=== PATIENT | female | born 1965 | race Two or more races ===

== ENCOUNTER 2019-02-23 19:55 | Inpatient (IN) | payer BC ==
[~2019-02-23] VITALS: Ht 157.5 cm; Wt 96.1 kg
[2019-02-23] MEDS ORDERED: LORazepam 0.5 MG TAB PO ONE (20:15)
[2019-02-23] MEDS ORDERED: ASPirin 81 mg TAB PO ONE (20:15)
[2019-02-23 21:44] LABS: Basophils # (auto) 0.1 uL; Basophils % (auto) 0.5 % (0.0-2.0); Eosinophils # (auto) 0.2 uL; Eosinophils % (auto) 1.5 % (0.0-7.0); Hematocrit 44.6 % (36.0-46.0); Hemoglobin 14.5 g/dL (12.2-16.2); Lymphocytes # (auto) 2.3 uL; Lymphocytes % (auto) 19.2 % (10.0-50.0); Mean Corpuscular Hemoglobin 27.1 pg (28.0-32.0); Mean Corpuscular Hgb Conc. 32.4 g/dL (32.0-36.0); Mean Corpuscular Volume 83.5 fL (80.0-100.0); Monocytes # (auto) 0.4 uL; Monocytes % (auto) 3.5 % (0.0-12.0); Neutrophils # (auto) 9.1 uL; Neutrophils % (auto) 75.3 % (37.0-80.0); Nucleated Red Blood Cells % 0.1 %; Platelet Count (auto) 308 10^3/uL (140-450); Red Blood Cells 5.34 10^6/uL (4.0-5.20); Red Cell Distribution Width 14.7 % (11.8-14.3); White Blood Cell 12.1 10^3/uL (4.4-10.8)
[2019-02-23 22:01] LABS: INR < 0.93 (0.9-1.15); Partial Thromboplastin Time 27.7 sec (23.64-32.05)
[2019-02-23 22:02] LABS: Albumin 3.6 g/dL (3.4-5.0); Anion Gap 5 (5-15); Blood Urea Nitrogen 10 mg/dL (7-18); Carbon Dioxide 30 mmol/L (21-32); Chloride 104 mmol/L (98-107); Glucose 76 mg/dL (74-106); Potassium 3.8 mmol/L (3.5-5.1); Sodium 139 mmol/L (136-145)
[2019-02-23 22:08] LABS: Alanine Aminotransferase 16 U/L (13-56); Alkaline Phosphatase 88 U/L (45-117); Aspartate Aminotransferase 13 U/L (15-37); BUN/Creatinine Ratio 10.9; Bilirubin, Total 0.4 mg/dL (0.2-1.0); GFR African American 82 mL/min; GFR Non-African American 68 mL/min; Total Protein 8.6 g/dL (6.4-8.2)
[2019-02-24] VITALS (8 sets, daily range): BP systolic 95–131; BP diastolic 55–75
[2019-02-24] MEDS ORDERED: ONDANSETRON HCL 4 MG/2 ML VIAL IV PRN (00:15)
[2019-02-24] MEDS ORDERED: MORPHINE SULF INJ 2 MG/ML SYRINGE 1ML IV PRN (00:15)
[2019-02-24] MEDS ORDERED: ACETAMINOPHEN 500 MG TAB PO PRN (00:15)
[2019-02-24] MEDS ORDERED: TEMAZEPAM 15 MG CAP PO PRN (00:15)
[2019-02-24] MEDS ORDERED: NITROGLYCERIN 0.4 MG SL TAB SL PRN (00:15)
[2019-02-24 00:43] LABS: Urine Bacteria MANY /hpf (None Seen); Urine Blood Negative /uL (Negative); Urine Mucus FEW (None Seen); Urine Specific Gravity 1.009 (1.001-1.035); Urine WBC <1 /hpf (0 - 5)
--- NOTE | 2019-02-24 02:06 | NUR ---
Telemetry admit from ER YOSELYN ELDRIDGE admitted to Telemetry unit. Patient oriented to ORLANDO VALLADARES RN primary RN, unit, room, bed, and unit policies regarding patient care and visiting hours. Patient now on continuous telemetry monitoring, tele box #[id number]. encouraged to call if they need something. All questions and concerns addressed, patient verbalized understanding. Bed in low position and call light within reach.
[2019-02-24 07:00] LABS: Basophils # (auto) 0 uL; Basophils % (auto) 0.5 % (0.0-2.0); Eosinophils # (auto) 0.2 uL; Eosinophils % (auto) 2.4 % (0.0-7.0); Hematocrit 36.6 % (36.0-46.0); Hemoglobin 12.3 g/dL (12.2-16.2); Lymphocytes # (auto) 2.2 uL; Lymphocytes % (auto) 25.8 % (10.0-50.0); Mean Corpuscular Hemoglobin 27.7 pg (28.0-32.0); Mean Corpuscular Hgb Conc. 33.7 g/dL (32.0-36.0); Mean Corpuscular Volume 82.3 fL (80.0-100.0); Monocytes # (auto) 0.4 uL; Monocytes % (auto) 4.2 % (0.0-12.0); Neutrophils # (auto) 5.7 uL; Neutrophils % (auto) 67.1 % (37.0-80.0); Platelet Count (auto) 247 10^3/uL (140-450); Red Blood Cells 4.45 10^6/uL (4.0-5.20); Red Cell Distribution Width 14.6 % (11.8-14.3); White Blood Cell 8.5 10^3/uL (4.4-10.8)
[2019-02-24 07:04] LABS: Anion Gap 5 (5-15); Blood Urea Nitrogen 11 mg/dL (7-18); Calcium 8.3 mg/dL (8.5-10.1); Carbon Dioxide 28 mmol/L (21-32); Chloride 108 mmol/L (98-107); Glucose 90 mg/dL (74-106); Potassium 3.6 mmol/L (3.5-5.1); Sodium 141 mmol/L (136-145)
[2019-02-24 07:11] LABS: BUN/Creatinine Ratio 14.7; Cholesterol 136 mg/dL (< 200); GFR African American 104 mL/min; GFR Non-African American 86 mL/min; HDL Cholesterol 40 mg/dL (40-59); LDL Cholesterol 90 mg/dL (< 100); Triglycerides 74 mg/dL (< 150)
--- NOTE | 2019-02-24 07:20 | NUR ---
report given to milagros whyte
--- NOTE | 2019-02-24 08:15 | NUR ---
Shift Opening Notes Assumed care of patient. Alert and oriented x4, no signs or symptoms of distress noted. Patient informed on plan of care and verbalized understanding. Bed in lowest position, bed rails up x2, call light in reach. Will continue to monitor.
[2019-02-24] MEDS: METOPROLOL TARTRATE 25 MG TAB PO SCH ×2 (10:00→21:18)
[2019-02-24] MEDS: ASPirin-EC 81 mg tab PO SCH (10:00)
[2019-02-24] MEDS: DOCUSATE SOD 100 MG CAP PO SCH ×2 (10:00→21:17)
--- NOTE | 2019-02-24 10:00 | NUR ---
Stress Test Patient taken for stress test. no signs or symptoms of distress noted
[2019-02-24] MEDS ORDERED: ADENOSINE 81 MG in GIVE UN-DILUTED 0 ML IV STA (10:57)
[2019-02-24] MEDS ORDERED: ALPRAZolam 0.5 MG TAB PO PRN (11:30)
--- NOTE | 2019-02-24 12:00 | NUR ---
patient at stress test Addendum: 02/24/19 at 1319 by ATUL CORTEZ RN RN Amended: Links added.
--- NOTE | 2019-02-24 12:47 | NUR ---
patient returned from stress test Patient returned from stress test. No signs or symptoms of stress noted. Patient updated on the plan of care and patient verbalized understanding. Bed in the lowest position, bed rails up x2, call light in reach, will continue to monitor.
--- NOTE | 2019-02-24 13:17 | NUR ---
patient was at stress test Addendum: 02/24/19 at 1319 by ATUL CORTEZ RN RN Amended: Links added.
--- NOTE | 2019-02-24 14:15 | NUR ---
US at bedside
--- NOTE | 2019-02-24 18:32 | NUR ---
PATIENT ROUNDS PATIENT RESTING IN BED, NO S/S OF DISTRESS OR SOB, NO PAIN NOTED OR REPORTED. DINNER TRAY PROVIDED. WILL ENDORSE CARE TO EVENT DESIGNER RN.
--- NOTE | 2019-02-24 19:20 | NUR ---
Opening Shift Note Assumed care of patient, awake and alert. No S/S of distress/SOB or pain. Instructed on POC and to call for assist PRN, will continue to monitor for changes Q1hr and PRN.
[2019-02-24] MEDS ORDERED: ATORVASTATIN 20 MG TAB PO SCH (22:00)
--- NOTE | 2019-02-25 01:00 | NUR ---
Respiratory note: PT TAKEN OFF CPAP AT THIS TIME DUE TO PT REQUEST. PT STATED THAT SHE DID NOT LIKE HOW IT FELT ON HER AND THAT SHE FELT CLAUSTROPHOBIC WITH IT ON. I ASKED IF SHE WANTED TO TRY A SMALLER NASAL MASK, BUT SHE SAID NO. CPAP LEFT IN THE ROOM AT THIS TIME, PT AWARE TO CALL FOR RT IF SHE WISHES TO TRY AGAIN AT A LATER TIME.
[2019-02-25 02:49] VITALS: BP 110/58
[2019-02-25 05:00] VITALS: BP 133/62
--- NOTE | 2019-02-25 07:19 | NUR ---
Report given to milagros whyte
--- NOTE | 2019-02-25 07:25 | NUR ---
Shift Opening Notes Assumed care of patient. Alert and oriented x4, no signs or symptoms of distress or SOB, no pain noted or reported at this time. Patient informed on plan of care and instructed to call for assistance as needed, patient verbalized understanding. Respirations are even and unlabored on RA. Bed locked in lowest position, bed rails up x2, call light in reach. Will continue to monitor q1hr and PRN.
[2019-02-25 09:00] VITALS: BP 87/60
[2019-02-25] MEDS: METOPROLOL TARTRATE 25 MG TAB PO SCH (10:00)
[2019-02-25] MEDS: ASPirin-EC 81 mg tab PO SCH (10:11)
[2019-02-25] MEDS: DOCUSATE SOD 100 MG CAP PO SCH (10:11)
[2019-02-25 11:32] VITALS: BP 90/50
--- NOTE | 2019-02-25 13:26 | NUR ---
Spoke with Zeina Gonzalez Patient is to see Dr. Elam as primary care provider on March 19 at 3pm. Discharge orders were updated to reflect after care follow up information.
--- NOTE | 2019-02-25 14:30 | NUR ---
Discharge instructions given as ordered. Encourage to follow up with PCP, service parts driver, and neurologist as instructed. All questions and concerns addressed. Patient verbalized understanding. Medication reconciliation form completed and copy given to patient. IV removed with catheter intact, pressure dressing applied. Telemetry unit returned to ICU. Patient taken to vehicle via wheelchair with all personal belongings, accompanied by staff and family member. No distress noted at time of departure.
== END 2019-02-25 14:30 | disposition home or self-care (01) | DRG 303 ==
LOC: ER 19:59 → TELE 20:00 → TELE-CENTR 02-24 02:06
PROVIDERS: ADMIT Nurse Practitioner Family; ATTEND Family Medicine
DX: I25.10 Atherosclerotic heart disease of native coronary artery without angina pectoris (principal); E66.9 Obesity, unspecified; I10 Essential (primary) hypertension; J32.0 Chronic maxillary sinusitis; Z82.3 Family history of stroke; Z82.49 Family history of ischemic heart disease and other diseases of the circulatory system; Z83.3 Family history of diabetes mellitus; Z87.01 Personal history of pneumonia (recurrent); Z79.899 Other long term (current) drug therapy; Z68.38 Body mass index [BMI] 38.0-38.9, adult
CPT/HCPCS: 36415; 70450; 71045; 78452; 80048; 80053; 80061; 81001; 83880; 84484; 85025; 85610; 85730; 93005; 93017; 93306; 94660; G0378; J0153

== ENCOUNTER 2019-03-11 22:27 | Emergency (ER) | payer BC ==
[~2019-03-11] VITALS: Ht 157.5 cm; Wt 96.2 kg
[2019-03-11 23:11] LABS: Basophils # (auto) 0.1 uL; Basophils % (auto) 0.4 % (0.0-2.0); Eosinophils # (auto) 0.1 uL; Hematocrit 41.2 % (36.0-46.0); Hemoglobin 13.8 g/dL (12.2-16.2); Lymphocytes # (auto) 1.7 uL; Lymphocytes % (auto) 14.2 % (10.0-50.0); Mean Corpuscular Hemoglobin 27.4 pg (28.0-32.0); Mean Corpuscular Hgb Conc. 33.5 g/dL (32.0-36.0); Mean Corpuscular Volume 81.9 fL (80.0-100.0); Monocytes # (auto) 0.6 uL; Monocytes % (auto) 5.2 % (0.0-12.0); Neutrophils # (auto) 9.3 uL; Neutrophils % (auto) 79.2 % (37.0-80.0); Platelet Count (auto) 283 10^3/uL (140-450); Red Blood Cells 5.03 10^6/uL (4.0-5.20); Red Cell Distribution Width 14.8 % (11.8-14.3); White Blood Cell 11.7 10^3/uL (4.4-10.8)
[2019-03-11 23:26] LABS: INR 0.94 (0.9-1.15); Partial Thromboplastin Time 25.4 sec (23.64-32.05)
[2019-03-11 23:31] LABS: Albumin 3.4 g/dL (3.4-5.0); Anion Gap 5 (5-15); BUN/Creatinine Ratio 4.8; Blood Urea Nitrogen 4 mg/dL (7-18); Calcium 8.9 mg/dL (8.5-10.1); Carbon Dioxide 31 mmol/L (21-32); Chloride 105 mmol/L (98-107); GFR African American 93 mL/min; GFR Non-African American 77 mL/min; Glucose 145 mg/dL (74-106); Magnesium 2.2 mg/dL (1.6-2.6); Potassium 3.9 mmol/L (3.5-5.1); Sodium 141 mmol/L (136-145)
[2019-03-11 23:41] LABS: Alanine Aminotransferase 49 U/L (13-56); Alkaline Phosphatase 79 U/L (45-117); Aspartate Aminotransferase 39 U/L (15-37); Bilirubin, Total 0.5 mg/dL (0.2-1.0); Total Protein 7.6 g/dL (6.4-8.2)
[2019-03-11 23:58] LABS: Urine Bacteria FEW /hpf (None Seen); Urine Blood Negative /uL (Negative); Urine Mucus FEW (None Seen); Urine Specific Gravity 1.006 (1.001-1.035); Urine WBC <1 /hpf (0 - 5)
[2019-03-12] MEDS ORDERED: ONDANSETRON HCL 4 MG/2 ML VIAL IV ONE (03:00)
[2019-03-12] MEDS ORDERED: MORPHINE SULFATE 4 MG/ML SYR/VIAL IV ONE (03:00)
[2019-03-12 04:31] VITALS: BP 104/59
== END 2019-03-12 05:27 | disposition home or self-care (01) ==
LOC: ER 22:28
DX: R07.89 Other chest pain (principal); I10 Essential (primary) hypertension
CPT/HCPCS: 36415; 71046; 80053; 81001; 83735; 83880; 84484; 85025; 85610; 85730; 93005; 96374; 96375; 99284; J2270; J2405

== ENCOUNTER 2019-03-23 08:10 | Day surgery (SDC) | payer BC ==
[~2019-03-23] VITALS: Ht 157.5 cm; Wt 94.8 kg
[~2019-03-23 08:10] MED LIST: ASPI-404 PO
[2019-03-23] MEDS ORDERED: LIDOCAINE 2%HCL (LOCAL ANESTH.) INJ 20ML MDV ONE (10:32)
[2019-03-23] MEDS ORDERED: IODIXANOL 320MG/ML 100ML BTL IV ONE (10:32)
[2019-03-23] MEDS ORDERED: VERAPAMIL 2.5MG/ML INJ 2ML VIAL IV ONE (10:44)
[2019-03-23] MEDS ORDERED: ANGIOMAX 250 MG VIAL IV ONE (10:44)
[2019-03-23] MEDS ORDERED: MIDAZOLAM HCL 1MG/1ML-2 ML VIAL ONE (10:44)
[2019-03-23] MEDS ORDERED: fentaNYL CITRATE 100 MCG/2 ML VL ONE (10:44)
[2019-03-23] MEDS ORDERED: SODIUM CHL 0.9% 0 ML ONE (10:44)
== END 2019-03-23 13:44 | disposition home or self-care (01) ==
LOC: CATH 08:10
PROVIDERS: ATTEND Internal Medicine
DX: R94.39 Abnormal result of other cardiovascular function study (principal); R07.89 Other chest pain; E78.5 Hyperlipidemia, unspecified; Z79.82 Long term (current) use of aspirin; Z79.899 Other long term (current) drug therapy; Z87.891 Personal history of nicotine dependence; Z91.018 Allergy to other foods
CPT/HCPCS: 93005; 93458; C1760; C1769; C1894; J1644; J2250; J3010; Q9967; 99152; 99153

== ENCOUNTER 2022-08-07 17:01 | Emergency (ER) | payer BC ==
[~2022-08-07] VITALS: Ht 157.5 cm; Wt 108.2 kg
[~2022-08-07 17:01] MED LIST changes: -ASPI-404 PO; +ASPI-543 PO
[2022-08-07 18:03] LABS: Basophils # (auto) 0 10 ^3/uL (0-0.2); Basophils % (auto) 0.4 % (0.0-2.0); Eosinophils # (auto) 0.1 10 ^3/uL (0-0.8); Eosinophils % (auto) 0.9 % (0.0-7.0); Hematocrit 40.9 % (36.0-46.0); Hemoglobin 13.5 g/dL (12.2-16.2); Lymphocytes # (auto) 1.6 10 ^3/uL (0.4-5.4); Lymphocytes % (auto) 13.7 % (10.0-50.0); Mean Corpuscular Hemoglobin 27.4 pg (28.0-32.0); Mean Corpuscular Hgb Conc. 32.9 g/dL (32.0-36.0); Mean Corpuscular Volume 83.3 fL (80.0-100.0); Monocytes # (auto) 0.5 10 ^3/uL (0-1.3); Monocytes % (auto) 4.4 % (0.0-12.0); Neutrophils # (auto) 9.7 10 ^3/uL (1.6-8.6); Neutrophils % (auto) 80.6 % (37.0-80.0); Nucleated Red Blood Cells % 1.2 %; Red Cell Distribution Width 13.7 % (11.8-14.3)
[2022-08-07 18:11] LABS: Albumin 3.2 g/dL (3.4-5.0); BUN/Creatinine Ratio 14.7 (10.0-20.0); Calcium 8.9 mg/dL (8.5-10.1); Potassium 3.7 mmol/L (3.5-5.1)
[2022-08-07 18:14] LABS: Bilirubin, Total 0.4 mg/dL (0.2-1.0); Total Protein 7.6 g/dL (6.4-8.2)
[2022-08-07 18:18] LABS: Urine Bacteria NONE SEEN /hpf (None Seen); Urine Blood 3+ /uL (Negative); Urine Mucus FEW (None Seen); Urine Specific Gravity 1.024 (1.001-1.035); Urine WBC 295 /hpf (0 - 5)
[2022-08-07] MEDS ORDERED: cefTRIAXone SOD 1,000 MG VL IM ONE (20:30)
[2022-08-07] MEDS ORDERED: NITR-87 PO (23:17)
[2022-08-07 23:27] VITALS: BP 121/48
== END 2022-08-07 23:29 | disposition home or self-care (01) ==
LOC: ER 17:01
DX: N39.0 Urinary tract infection, site not specified (principal); Z88.6 Allergy status to analgesic agent; Z91.018 Allergy to other foods
CPT/HCPCS: 36415; 74176; 80053; 81001; 85025; 96372; 99285; J0696

== ENCOUNTER 2022-09-20 06:16 | Emergency (ER) | payer BC ==
[~2022-09-20] VITALS: Ht 157.5 cm; Wt 81.8 kg
[~2022-09-20 06:16] MED LIST changes: +NITR-87 PO
[2022-09-20 06:40] LABS: Basophils # (auto) 0.1 10 ^3/uL (0-0.2); Basophils % (auto) 0.7 % (0.0-2.0); Eosinophils # (auto) 0.1 10 ^3/uL (0-0.8); Eosinophils % (auto) 0.5 % (0.0-7.0); Hematocrit 42.1 % (36.0-46.0); Hemoglobin 14.5 g/dL (12.2-16.2); Lymphocytes # (auto) 2.2 10 ^3/uL (0.4-5.4); Lymphocytes % (auto) 18.1 % (10.0-50.0); Mean Corpuscular Hemoglobin 28.6 pg (28.0-32.0); Mean Corpuscular Hgb Conc. 34.4 g/dL (32.0-36.0); Mean Corpuscular Volume 83.1 fL (80.0-100.0); Monocytes # (auto) 0.5 10 ^3/uL (0-1.3); Monocytes % (auto) 4.3 % (0.0-12.0); Neutrophils # (auto) 9.3 10 ^3/uL (1.6-8.6); Neutrophils % (auto) 76.4 % (37.0-80.0); Nucleated Red Blood Cells % 0.1 %; Red Blood Cells 5.07 10^6/uL (4.0-5.20); Red Cell Distribution Width 13.6 % (11.8-14.3); White Blood Cell 12.2 10^3/uL (4.4-10.8)
[2022-09-20 06:49] LABS: INR 0.97 (0.9-1.15); Partial Thromboplastin Time 27.1 sec (24.6-33.4)
[2022-09-20 07:03] LABS: Albumin 3.8 g/dL (3.4-5.0); Calcium 9.5 mg/dL (8.5-10.1); Magnesium 2.2 mg/dL (1.6-2.6); Potassium 3.9 mmol/L (3.5-5.1)
[2022-09-20 07:07] LABS: Bilirubin, Total 0.7 mg/dL (0.2-1.0); Total Protein 7.2 g/dL (6.4-8.2)
[2022-09-20] MEDS ORDERED: traMADol HCL 50 MG TAB PO ONE (09:30)
[2022-09-20] MEDS ORDERED: TRAM50TA2 PO (10:06)
[2022-09-20 10:40] VITALS: BP 117/71
== END 2022-09-20 10:46 | disposition home or self-care (01) ==
LOC: ER 06:16
DX: R07.89 Other chest pain (principal); E78.5 Hyperlipidemia, unspecified; I25.2 Old myocardial infarction; Z98.61 Coronary angioplasty status
CPT/HCPCS: 36415; 71045; 80053; 83735; 83880; 84484; 85025; 85379; 85610; 85730; 93005

== ENCOUNTER 2023-07-16 13:51 | Inpatient (IN) | payer BC ==
[~2023-07-16] VITALS: Ht 157.5 cm; Wt 90.7 kg
[~2023-07-16 13:51] MED LIST changes: +TRAM50TA2 PO
[2023-07-16 14:24] LABS: Basophils # (auto) 0 10 ^3/uL (0-0.2); Basophils % (auto) 0.4 % (0.0-2.0); Eosinophils # (auto) 0 10 ^3/uL (0-0.8); Eosinophils % (auto) 0.3 % (0.0-7.0); Hematocrit 44.1 % (36.0-46.0); Hemoglobin 14.8 g/dL (12.2-16.2); Lymphocytes # (auto) 1.2 10 ^3/uL (0.4-5.4); Lymphocytes % (auto) 8.9 % (10.0-50.0); Mean Corpuscular Hemoglobin 28.1 pg (28.0-32.0); Mean Corpuscular Hgb Conc. 33.5 g/dL (32.0-36.0); Mean Corpuscular Volume 83.9 fL (80.0-100.0); Monocytes # (auto) 0.9 10 ^3/uL (0-1.3); Monocytes % (auto) 6.5 % (0.0-12.0); Neutrophils # (auto) 11.3 10 ^3/uL (1.6-8.6); Neutrophils % (auto) 83.9 % (37.0-80.0); Red Blood Cells 5.26 10^6/uL (4.0-5.20); Red Cell Distribution Width 13.7 % (11.8-14.3); White Blood Cell 13.5 10^3/uL (4.4-10.8)
[2023-07-16 14:26] LABS: Alanine Aminotransferase 39 U/L (7-40); Albumin 4.6 g/dL (3.2-4.8); Alkaline Phosphatase 103 U/L (46-116); Anion Gap 2 (5-15); Aspartate Aminotransferase 45 U/L (13-40); BUN/Creatinine Ratio 15.5 (10.0-20.0); Bilirubin, Total 1.1 mg/dL (0.2-1.0); Blood Urea Nitrogen 9 mg/dL (9-23); Calcium 9.9 mg/dL (8.7-10.4); Carbon Dioxide 33 mmol/L (20-30); Chloride 104 mmol/L (98-107); Glucose 113 mg/dL (74-106); Potassium 4.2 mmol/L (3.5-5.1); Sodium 139 mmol/L (136-145); Total Protein 7.9 g/dL (5.7-8.2)
[2023-07-16] MEDS: ASPirin 325 MG TAB PO ONE (17:10)
[2023-07-16] MEDS: MECLIZINE HCL 25 MG TAB PO ONE (17:10)
[2023-07-16] MEDS ORDERED: metroNIDAZOLE 500MG/100ML 100 ML IV ONE (17:15)
[2023-07-16] MEDS ORDERED: MORPHINE SULFATE 4 MG/ML SYR/VIAL IV PRN (17:15)
[2023-07-16] MEDS ORDERED: ONDANSETRON HCL 4 MG/2 ML VIAL IV PRN (17:15)
[2023-07-16] MEDS ORDERED: NITROGLYCERIN 0.4 MG SL TAB SL PRN (17:15)
[2023-07-16 17:51] LABS: Prothrombin Time 10.5 sec (9.3-11.8)
[2023-07-16] MEDS: SODIUM CHLORIDE 0.9% 1,000 ML IV ONE (18:22)
[2023-07-16] MEDS: METOPROLOL TARTRATE 25 MG TAB PO SCH (23:55)
[2023-07-16] MEDS: ATORVASTATIN 20 MG TAB PO SCH (23:55)
[2023-07-17] VITALS (8 sets, daily range): BP systolic 113–128; BP diastolic 37–68; PULSE 74–88; RESP 16–19; TEMP 97.6–98.7; O2SAT 95–99
[2023-07-17] MEDS: metroNIDAZOLE 500MG/100ML 100 ML IV SCH (01:50)
[2023-07-17] MEDS: SODIUM CHLORIDE 0.9% 1,000 ML IV SCH (05:24)
[2023-07-17 06:45] LABS: Basophils # (auto) 0.1 10 ^3/uL (0-0.2); Eosinophils # (auto) 0.2 10 ^3/uL (0-0.8); Eosinophils % (auto) 1.4 % (0.0-7.0); Hematocrit 35.7 % (36.0-46.0); Hemoglobin 11.9 g/dL (12.2-16.2); Lymphocytes # (auto) 2.3 10 ^3/uL (0.4-5.4); Lymphocytes % (auto) 19.7 % (10.0-50.0); Mean Corpuscular Hemoglobin 27.9 pg (28.0-32.0); Mean Corpuscular Hgb Conc. 33.4 g/dL (32.0-36.0); Mean Corpuscular Volume 83.4 fL (80.0-100.0); Monocytes # (auto) 0.9 10 ^3/uL (0-1.3); Monocytes % (auto) 7.6 % (0.0-12.0); Neutrophils % (auto) 70.3 % (37.0-80.0); Nucleated Red Blood Cells % 0.1 %; Red Blood Cells 4.29 10^6/uL (4.0-5.20); Red Cell Distribution Width 13.4 % (11.8-14.3); White Blood Cell 11.4 10^3/uL (4.4-10.8)
[2023-07-17 07:04] LABS: Alanine Aminotransferase 27 U/L (7-40); Albumin 3.6 g/dL (3.2-4.8); Alkaline Phosphatase 82 U/L (46-116); Anion Gap 4 (5-15); Aspartate Aminotransferase 23 U/L (13-40); Bilirubin, Total 1.1 mg/dL (0.2-1.0); Calcium 8.5 mg/dL (8.5-10.1); Carbon Dioxide 30 mmol/L (20-30); Chloride 108 mmol/L (98-107); Cholesterol 132 mg/dL (< 200); Glucose 107 mg/dL (74-106); HDL Cholesterol 30 mg/dL (40-59); LDL Cholesterol 83 mg/dL (< 100); Potassium 3.6 mmol/L (3.5-5.1); Sodium 142 mmol/L (136-145); Total Protein 5.8 g/dL (5.7-8.2); Triglycerides 145 mg/dL (< 150)
[2023-07-17 07:07] LABS: BUN/Creatinine Ratio 8.5 (10.0-20.0); Blood Urea Nitrogen < 5 mg/dL (9-23)
[2023-07-17] MEDS: cefTRIAXone 1GM/50ML D5W 50 ML IV SCH (08:14)
[2023-07-17] MEDS: ASPirin 81 mg TAB PO SCH (08:14)
[2023-07-17] MEDS: DOCUSATE SOD 100 MG CAP PO SCH (08:15)
[2023-07-17] MEDS ORDERED: ASPirin-EC 81 mg tab PO SCH (10:00)
[2023-07-17] MEDS: ERGOCALCIFEROL 50,000 UNIT(1.25MG) CAP PO SCH (21:47)
[2023-07-18 05:00] VITALS: BP 117/87; PULSE 72; RESP 17; TEMP 97.3; O2SAT 97
[2023-07-18 08:00] VITALS: BP 152/69; PULSE 67; PULSE 68; PULSE 70; RESP 18; TEMP 98; O2SAT 99
[2023-07-18] MEDS: ACETAMINOPHEN 325 MG TAB PO PRN (08:13)
[2023-07-18 12:00] VITALS: BP 135/75; PULSE 55; RESP 16; TEMP 97.8; O2SAT 98
[2023-07-18] MEDS: MORPHINE SULFATE INJ 2 MG/ml SYRG IV PRN (12:00)
[2023-07-18 16:00] VITALS: BP 158/66; PULSE 60; RESP 16; TEMP 97.7; O2SAT 100
[2023-07-18 20:00] VITALS: PULSE 67; PULSE 68; RESP 20; O2SAT 96
[2023-07-18 22:00] VITALS: BP 138/53; PULSE 68; RESP 20; TEMP 98.4; O2SAT 96
[2023-07-19] MEDS: cefTRIAXone 1GM/50ML D5W 50 ML IV ONE
[2023-07-19 05:00] VITALS: BP 151/52; PULSE 63; RESP 18; TEMP 98; O2SAT 98
[2023-07-19 08:00] VITALS: BP 159/71; PULSE 64; PULSE 70; RESP 16; TEMP 97.9; O2SAT 97
[2023-07-19] MEDS ORDERED: ZOFR4T PO (09:14)
[2023-07-19] MEDS ORDERED: LEVO500T91 PO (09:14)
[2023-07-19] MEDS ORDERED: METR-344 PO (09:14)
[2023-07-19 11:07] VITALS: BP 159/71; PULSE 64; RESP 16; TEMP 97.9; O2SAT 97
== END 2023-07-19 14:41 | disposition home or self-care (01) | DRG 392 ==
LOC: ER 13:51 → TELE 17:14 → TELE-WESTW 23:57
PROVIDERS: ADMIT Nurse Practitioner Family; ATTEND Family Medicine
DX: K52.9 Noninfective gastroenteritis and colitis, unspecified (principal); K29.80 Duodenitis without bleeding; K57.30 Diverticulosis of large intestine without perforation or abscess without bleeding; D72.829 Elevated white blood cell count, unspecified; E78.5 Hyperlipidemia, unspecified; E55.9 Vitamin D deficiency, unspecified; M93.90 Osteochondropathy, unspecified of unspecified site; K82.4 Cholesterolosis of gallbladder; I25.2 Old myocardial infarction; Z82.3 Family history of stroke; Z83.3 Family history of diabetes mellitus; Z80.3 Family history of malignant neoplasm of breast; Z82.49 Family history of ischemic heart disease and other diseases of the circulatory system
CPT/HCPCS: 36415; 71045; 74176; 76705; 80053; 80061; 82306; 82607; 83036; 83605; 83690; 83735; 84443; 84484; 85025; 85610; 93005; 93306; G0378; J3490

== ENCOUNTER 2023-09-04 08:28 | Emergency (ER) | payer BC ==
[~2023-09-04] VITALS: Ht 157.5 cm; Wt 84.0 kg
[~2023-09-04 08:28] MED LIST changes: +LEVO500T91 PO; +METR-344 PO; +ZOFR4T PO
[2023-09-04 08:51] LABS: Basophils # (auto) 0.1 10 ^3/uL (0-0.2); Basophils % (auto) 1.2 % (0.0-2.0); Eosinophils # (auto) 0.1 10 ^3/uL (0-0.8); Hemoglobin 13.4 g/dL (12.2-16.2); Lymphocytes # (auto) 2.2 10 ^3/uL (0.4-5.4); Lymphocytes % (auto) 19.1 % (10.0-50.0); Mean Corpuscular Hemoglobin 28.1 pg (28.0-32.0); Mean Corpuscular Hgb Conc. 33.6 g/dL (32.0-36.0); Mean Corpuscular Volume 83.4 fL (80.0-100.0); Monocytes # (auto) 0.8 10 ^3/uL (0-1.3); Monocytes % (auto) 7.2 % (0.0-12.0); Neutrophils # (auto) 8.1 10 ^3/uL (1.6-8.6); Neutrophils % (auto) 71.5 % (37.0-80.0); Nucleated Red Blood Cells % 0.3 %; Red Blood Cells 4.79 10^6/uL (4.0-5.20); Red Cell Distribution Width 13.4 % (11.8-14.3); White Blood Cell 11.3 10^3/uL (4.4-10.8)
[2023-09-04 09:07] LABS: Alanine Aminotransferase 41 U/L (7-40); Albumin 4.1 g/dL (3.2-4.8); Alkaline Phosphatase 80 U/L (46-116); Anion Gap 5 (5-15); Aspartate Aminotransferase 36 U/L (13-40); BUN/Creatinine Ratio 7.6 (10.0-20.0); Blood Urea Nitrogen 5 mg/dL (9-23); Calcium 9.1 mg/dL (8.5-10.1); Carbon Dioxide 30 mmol/L (20-30); Chloride 106 mmol/L (98-107); Glucose 140 mg/dL (74-106); Potassium 3.6 mmol/L (3.5-5.1); Sodium 141 mmol/L (136-145)
[2023-09-04 09:08] LABS: Bilirubin, Total 0.6 mg/dL (0.2-1.0); Total Protein 7.2 g/dL (5.7-8.2)
[2023-09-04] MEDS: SODIUM CHLORIDE 0.9% 1,000 ML IV ONE (09:30)
[2023-09-04] MEDS: ASPirin 81 mg TAB PO ONE (09:30)
[2023-09-04] MEDS: METOCLOPRAMIDE HCL 5MG/ml INJ 2ml VIAL IV ONE (10:23)
[2023-09-04] MEDS: KETOROLAC TROMETH 30 MG/ML 1ML VIAL IV ONE (10:24)
[2023-09-04 11:37] LABS: Urine Bacteria None Seen /hpf (None Seen)
[2023-09-04 12:00] LABS: Urine Blood Negative /uL (Negative); Urine Clarity Clear (Clear); Urine Color Yellow (Yellow); Urine Mucus FEW (None Seen); Urine Protein, UAD 1+ (Negative); Urine Specific Gravity 1.022 (1.001-1.035); Urine Urobilinogen Normal (Negative); Urine WBC 2 /hpf (0 - 5); Urine pH 6.5 (5.0-9.0)
[2023-09-04] MEDS ORDERED: DEX4T PO (13:09)
[2023-09-04] MEDS ORDERED: ZOFR4T PO (13:09)
[2023-09-04] MEDS ORDERED: CYCL-839 PO (13:09)
[2023-09-04 13:34] VITALS: BP 135/79; PULSE 70; RESP 18; O2SAT 98
== END 2023-09-04 13:36 | disposition home or self-care (01) ==
LOC: ER 08:28
DX: R07.89 Other chest pain (principal); M54.12 Radiculopathy, cervical region; R10.84 Generalized abdominal pain; R73.9 Hyperglycemia, unspecified; I25.2 Old myocardial infarction; E78.5 Hyperlipidemia, unspecified; Z79.2 Long term (current) use of antibiotics; Z79.899 Other long term (current) drug therapy; Z91.018 Allergy to other foods
CPT/HCPCS: 36415; 71045; 72125; 80053; 81001; 83735; 84443; 84484; 85025; 93005; 96361; 96374; 96375; 99285; J1885; J2765; J7030